=== PATIENT | male | born 1990 | race Caucasian/White ===

== ENCOUNTER → 2018-03-09 | Outpatient (CLI) | payer BC | LOC: EDSTATUS 14:31 → BMCIMAGING 14:31 | PROVIDERS: ATTEND Family Medicine | DX: S62.343A Nondisplaced fracture of base of third metacarpal bone, left hand, initial encounter for closed fracture (principal) ==

== ENCOUNTER → 2018-04-05 | Outpatient (CLI) | payer BC | LOC: BMCIMAGING 08:45 | PROVIDERS: ATTEND Orthopaedic Surgery Hand Surgery | DX: S62.343D Nondisplaced fracture of base of third metacarpal bone, left hand, subsequent encounter for fracture with routine healing (principal) ==